=== PATIENT | male | born 1995 | race Caucasian/White ===

== ENCOUNTER 2019-02-02 18:12 | Inpatient (IN) | payer OTHER ==
--- NOTE | 2019-02-02 18:55 | ED ---
Medical Screening - HPI Summary HPI Summary: Patient complains of SI. Patient brought by police on recommendation of psychiatric counseling at [facility] for intensifying SI over the past few weeks.. Patient states prior mental health diagnosis of bipolar, not taking medication. Denies having acted on SI. Denies any other symptoms, pain or injury. Positive smoker. Denies EtOH or recreational drug use today. - History of Current Complaint Chief Complaint: EDSuicidal Stated Complaint: MHE/SI PER POLICE Time Seen by Provider: 02/02/19 18:46 Onset/Duration: Started Days Ago PMH/Surg Hx/FS Hx/Imm Hx Endocrine/Hematology History: Denies: Hx Anticoagulant Therapy Cardiovascular History: Denies: Hx Pacemaker/ICD History: Denies: Hx Dialysis Sensory History: Denies: Hx Eye Prosthesis Opthamlomology History: Denies: Hx Legally Blind EENT History: Denies: Hx Deafness Neurological History: Denies: Hx Dementia Psychiatric History: Denies: Hx Autism Infectious Disease History: No Infectious Disease History: Denies: Traveled Outside the [place] in Last 30 Days - Social History Occupation: Student Alcohol Use: None Hx Substance Use: No Smoking Status (MU): Current Every Day Smoker Type: Cigarettes Review of Systems Constitutional: Negative Eyes: Negative ENT: Negative Cardiovascular: Negative Respiratory: Negative Gastrointestinal: Negative Genitourinary: Negative Musculoskeletal: Negative Skin: Negative Neurological: Negative Positive: Anxious, Depressed All Other Systems Reviewed And Are Negative: Yes Physical Exam Triage Information Reviewed: Yes Vital Signs On Initial Exam: Initial Vitals Temp Pulse Resp BP Pulse Ox 98.3 F 81 17 116/79 98 02/02/19 18:23 02/02/19 18:23 02/02/19 18:23 02/02/19 18:23 02/02/19 18:23 Vital Signs Reviewed: Yes Appearance: Positive: Well-Appearing Skin: Positive: Warm Head/Face: Positive: Normal Head/Face Inspection Eyes: Positive: Normal Neck: Positive: Supple Respiratory/Lung Sounds: Positive: Clear to Auscultation Cardiovascular: Positive: Normal Abdomen Description: Positive: Nontender Musculoskeletal: Positive: Normal Neurological: Positive: Normal Psychiatric: Positive: Normal AVPU Assessment: Alert - [place] Coma Scale Best Eye Response: 4 - Spontaneous Best Motor Response: 6 - Obeys Commands Best Verbal Response: 5 - Oriented Coma Scale Total: 15 Diagnostics - Vital Signs Vital Signs Temp Pulse Resp BP Pulse Ox 02/02/19 18:23 98.3 F 81 17 116/79 98 - Laboratory Result Diagrams: 02/02/19 19:01 02/02/19 19:01 Lab Statement: Any lab studies that have been ordered have been reviewed, and results considered in the medical decision making process. Course/Dx - Course Course Of Treatment: Patient complains of SI. Patient brought by police on recommendation of psychiatric counseling at [facility] for intensifying SI over the past few weeks.. Patient states prior mental health diagnosis of bipolar, not taking medication. Denies having acted on SI. Denies any other symptoms, pain or injury. Positive smoker. Denies EtOH or recreational drug use today. Vital signs within normal limits. Labs unremarkable. Mental health evaluation recommends involuntary admission for unspecified depressive disorder. Recommend involuntary admission for unspecified depressive disorder. - Diagnoses Provider Diagnoses: Depressive disorder, not elsewhere classified Discharge - Sign-Out/Discharge Documenting (check all that apply): Patient Departure Patient Received Moderate/Deep Sedation with Procedure: No - Discharge Plan Condition: Stable [facility] [place]position and Condition Condition: STABLE [place] [facility] [place]
[2019-02-02 19:16] LABS: Urine Appearance Cloudy; Urine Bilirubin Negative (Negative); Urine Blood Negative (Negative); Urine Color Yellow; Urine Glucose Negative (Negative); Urine Ketones Trace (Negative); Urine Nitrite Negative (Negative); Urine Protein Negative (Negative); Urine Specific Gravity 1.025 (1.010-1.030); Urine Urobilinogen Negative (Negative)
[2019-02-02 19:23] LABS: ABS Basophils 0 10^3/ul (0-0.2); ABS Eosinophils 0.2 10^3/ul (0-0.6); ABS Lymphocytes 1.9 10^3/ul (1.0-4.8); ABS Monocytes 0.3 10^3/ul (0-0.8); ABS Neutrophils 1.8 10^3/ul (1.5-7.7); ABS Nucleated RBC 0 10^3/ul; Eosinophil % 3.8 %; Hematocrit 44 % (42-52); Hemoglobin 15.3 g/dL (14.0-18.0); Lymphocyte % 45.8 %; Mean Corpuscular HGB Conc 35 g/dL (31-36); Mean Corpuscular Hemoglobin 33 pg (27-31); Mean Corpuscular Volume 93 fL (80-94); Mean Platelet Volume 8.4 fL (7.4-10.4); Nucleated Red Blood Cells % 0.2; Platelet Count 168 10^3/uL (150-450); Red Cell Distribution Width 13 % (10.5-15); White Blood Count 4.2 10^3/uL (3.5-10.8)
[2019-02-02 19:29] LABS: Urine Benzodiazepine Screen None Detected (None Detect); Urine Opiates Screen None Detected (None Detect)
[2019-02-02 19:31] LABS: ALT 9 U/L (7-52); AST 13 U/L (13-39); Albumin 4.7 g/dL (3.2-5.2); Albumin/Globulin Ratio 1.7 (1-3); Alkaline Phosphatase 38 U/L (34-104); Anion Gap 9 mmol/L (2-11); BUN/Creatinine Ratio 14.7 (8-20); Blood Urea Nitrogen 11 mg/dL (6-24); CO2 Carbon Dioxide 22 mmol/L (22-32); Calcium 9.6 mg/dL (8.6-10.3); Chloride 109 mmol/L (101-111); EGFR African American 159.1 (>60); EGFR Non-African American 131.5 (>60); Globulin 2.8 g/dL (2-4); Glucose 89 mg/dL (70-100); Potassium 3.9 mmol/L (3.5-5.0); Sodium 140 mmol/L (135-145); Total Protein 7.5 g/dL (6.4-8.9)
[2019-02-02 19:37] LABS: Acetaminophen < 15 mcg/mL; Alcohol < 10 mg/dL (<10); Salicylate < 2.50 mg/dL (<30)
[2019-02-02 19:44] LABS: TSH (Thyroid Stimulating Horm) 1.13 mcIU/mL (0.34-5.60)
[2019-02-02] MEDS ORDERED: Al Hydrox/Mg Hydrox/Simet LIQ* 30 ML UDC PO PRN (23:05)
[2019-02-02] MEDS ORDERED: Nicotine GUM* (FRUIT FLAVOR) 2 MG GUM PO PRN (23:05)
[2019-02-02] MEDS ORDERED: Acetaminophen TAB* 325 MG PO PRN (23:05)
[2019-02-02] MEDS ORDERED: Divalproex DR TAB(*) 500 MG PO SCH (23:30)
[2019-02-03] MEDS ORDERED: Divalproex DR TAB(*) 500 MG PO SCH (09:00)
[2019-02-03] MEDS: Vitamin THERAPEUTIC TAB PO SCH (12:41)
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
[2019-02-03] MEDS: Divalproex ER TAB(*) 500 MG PO SCH ×2 (14:59→19:04)
[2019-02-04 07:07] LABS: HDL Cholesterol 42.8 mg/dL
[2019-02-04] MEDS: Nicotine GUM* 2 MG PO PRN (08:27)
[2019-02-04] MEDS: Divalproex ER TAB(*) 500 MG PO SCH (08:28)
[2019-02-04] MEDS: Vitamin THERAPEUTIC TAB PO SCH (08:28)
--- NOTE | 2019-02-04 18:16 | PN ---
Subjective - Subjective Date of Service: 02/04/19 Service Type: 75393 Hosp care 15 min low complexity Subjective: Aye is found in bed, trying to take a nap. He's participated in groups today. He states he's disappointed but understanding about not going home today. He seems to recognize that his mood is not stable, but he does not seem to realize that it is problematic in significant and potentially volatile ways. Objective - General Observations Appearance: Neat Appears Stated Age: Yes Stature: Thin Posture: WNL Eye Contact: Average Behavior/Activity: WNL - Interaction Observations Stated Mood: Euthymic Affect: Full, Bright Speech Pattern/Tone: Clear Thought Process: Coherent Perception: WNL Thought Content: WNL Hallucination Type: None Delusion Type: None - Cognitive Function Orientation: A&O x 4 Level of Consciousness: Awake, Alert, Appropriate Cognition: WNL Estimated Intelligence: Above Normal Insight: Difficulty Acknowledging Presence of Psyciatric Problems Judgment Within Normal Limits: Yes Ability to Make Reasonable Decisions: Mildly Impaired - Medication Compliance Cooperative with Inpatient Medication Regimen: Yes - Group Participation Participates in Group Activities: Yes Assessment - Assessment Merits Inpatient Hospitalization: For Immediate Safety, For Stabilization, For Discharge Planning Inpatient DSM-V Dx: F31.12 Clinical Impression: 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 Plan - Plan Treatment Plan: Name: AYE BRYAN Birthdate: 1995 [id number] Depakote ER 1000 mg was started to encourage an easy transition into outpatient medication plan adherence. Aye will stay over the weekend for monitoring of mood. Continued Medication Management: Different Medication Medications: Current Medications Acetaminophen (Tylenol Tab*) 650 mg PO Q4H PRN PRN Reason: PAIN or TEMP > 101 F Al Hydrox/Mg Hydrox/Simethicone (Maalox Plus*) 30 ml PO Q4H PRN PRN Reason: INDIGESTION Divalproex Sodium (Depakote Er Tab(*)) 1,000 mg PO DAILY [facility] Last Admin: 02/04/19 08:28 Dose: 1,000 mg Multivitamins (Theragran Tab*) 1 tab PO DAILY [facility] Last Admin: 02/04/19 08:28 Dose: 1 tab Nicotine Polacrilex (Nicotine Gum*) 2 mg PO Q2H PRN PRN Reason: CRAVINGS Last Admin: 02/04/19 08:27 Dose: 2 mg - Discharge Plan Discharge Plan: Outpatient Follow Up Outpatient Program: [facility]
[2019-02-05] MEDS: Vitamin THERAPEUTIC TAB PO SCH (08:53)
[2019-02-05] MEDS: Divalproex ER TAB(*) 500 MG PO SCH (08:53)
[2019-02-05] MEDS: Nicotine GUM* 2 MG PO PRN ×2 (08:55→13:13)
[2019-02-06] MEDS: Divalproex ER TAB(*) 500 MG PO SCH (08:43)
[2019-02-06] MEDS: Vitamin THERAPEUTIC TAB PO SCH (08:43)
[2019-02-06] MEDS: Nicotine GUM* 2 MG PO PRN ×2 (08:43→11:24)
--- NOTE | 2019-02-06 17:39 | PN ---
Subjective - Subjective Date of Service: 02/05/19 Service Type: 25221 Hosp care 25 min moderate complexity Subjective: Patient was in the milieu with female peers putting nail [place] on. Appeared happy and denied any psychiatric problems although seemed to be euphoric and pressured. Denied any SI or hallucinations. Objective - General Observations Appearance: Well Groomed Appears Stated Age: Yes Stature: Tall Posture: WNL Eye Contact: Average Behavior/Activity: WNL - Interaction Observations Attitude Towards Examiner: Cooperative Stated Mood: Elevated Affect: Bright Speech Pattern/Tone: Clear, Appropriate, Pressured Thought Process: Coherent, Goal Directed, Loose Associations, Over Inclusive Perception: WNL Thought Content: WNL Hallucination Type: None Delusion Type: None - Cognitive Function Orientation: A&O x 4 Level of Consciousness: Awake, Alert, Appropriate Cognition: WNL Estimated Intelligence: Normal Insight: Mostly Blames Others for Problems Judgment Within Normal Limits: No Ability to Make Reasonable Decisions: Moderately Impaired - Medication Compliance Cooperative with Inpatient Medication Regimen: Yes - Group Participation Participates in Group Activities: Yes Assessment - Assessment Merits Inpatient Hospitalization: For Stabilization, Diagnosis Determination, Pending Safe DC Plan Inpatient DSM-V Dx: F31.12 Clinical Impression: 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 Plan - Plan Treatment Plan: Name: AYE BRYAN Birthdate: 1995 [id number] Depakote ER 1000 mg was started to encourage an easy transition into outpatient medication plan adherence. Aye will stay over the weekend for monitoring of mood. Continued Medication Management: Continue Outpt Medication Medications: Current Medications Acetaminophen (Tylenol Tab*) 650 mg PO Q4H PRN PRN Reason: PAIN or TEMP > 101 F Al Hydrox/Mg Hydrox/Simethicone (Maalox Plus*) 30 ml PO Q4H PRN PRN Reason: INDIGESTION Divalproex Sodium (Depakote Er Tab(*)) 1,000 mg PO DAILY [facility] Last Admin: 02/06/19 08:43 Dose: 1,000 mg Multivitamins (Theragran Tab*) 1 tab PO DAILY [facility] Last Admin: 02/06/19 08:43 Dose: 1 tab Nicotine Polacrilex (Nicotine Gum*) 2 mg PO Q2H PRN PRN Reason: CRAVINGS Last Admin: 02/06/19 11:24 Dose: 2 mg - Discharge Plan Discharge Plan: Outpatient Follow Up Outpatient Program: [facility]
[2019-02-07 09:43] VITALS: BP 118/64
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
[2019-02-07] MEDS: Divalproex ER TAB(*) 500 MG PO SCH (12:05)
[2019-02-07] MEDS: Vitamin THERAPEUTIC TAB PO SCH (12:05)
== END 2019-02-07 12:10 | disposition home or self-care (01) | DRG 885 ==
LOC: ED 18:12 → BSU 21:56
PROVIDERS: ADMIT Psychiatry & Neurology Psychiatry; ATTEND Psychiatry & Neurology Psychiatry
DX: F31.12 Bipolar disorder, current episode manic without psychotic features, moderate (principal); R45.851 Suicidal ideations; F12.90 Cannabis use, unspecified, uncomplicated; F17.210 Nicotine dependence, cigarettes, uncomplicated; R40.2362 Coma scale, best motor response, obeys commands, at arrival to emergency department; R40.2142 Coma scale, eyes open, spontaneous, at arrival to emergency department; R40.2252 Coma scale, best verbal response, oriented, at arrival to emergency department; Z81.8 Family history of other mental and behavioral disorders
CPT/HCPCS: 36415; 80053; 80061; 80164; 80307; 80320; 80329; 81003; 83036; 84443; 85025; 90686; 99222; 99231; 99232; 99238; 99284; A9270-GY; G0480